=== PATIENT | female | born 1940 | race Caucasian/White ===

== ENCOUNTER 2023-01-16 09:21 | Outpatient (CLI) | payer OTHER | END 2023-01-16 09:22 | disposition home or self-care (01) | LOC: BICRAD 09:21 | PROVIDERS: ATTEND Nurse Practitioner Family | DX: M47.816 Spondylosis without myelopathy or radiculopathy, lumbar region (principal); M41.9 Scoliosis, unspecified | CPT/HCPCS: 72120 ==

== ENCOUNTER 2023-02-28 09:24 | Outpatient (CLI) | payer OTHER | END 2023-02-28 09:25 | disposition home or self-care (01) | LOC: SCSMRI 09:24 | PROVIDERS: ATTEND Specialist | DX: M47.26 Other spondylosis with radiculopathy, lumbar region (principal); M54.14 Radiculopathy, thoracic region; M51.16 Intervertebral disc disorders with radiculopathy, lumbar region; M48.061 Spinal stenosis, lumbar region without neurogenic claudication | CPT/HCPCS: 72146; 72148 ==

== ENCOUNTER 2023-04-06 10:23 | Outpatient (CLI) | payer OTHER ==
[2023-04-06] MEDS ORDERED: Iopamidol 370 76% 100 ML VIAL ONE (12:34)
== END 2023-04-06 10:24 | disposition home or self-care (01) ==
LOC: BICCT 10:23
PROVIDERS: ATTEND Physician Assistant Medical
DX: R10.13 Epigastric pain (principal); R11.0 Nausea; R10.32 Left lower quadrant pain; R93.5 Abnormal findings on diagnostic imaging of other abdominal regions, including retroperitoneum; N28.1 Cyst of kidney, acquired; K59.09 Other constipation; K76.89 Other specified diseases of liver; E27.8 Other specified disorders of adrenal gland; Z90.710 Acquired absence of both cervix and uterus; J98.4 Other disorders of lung; R91.8 Other nonspecific abnormal finding of lung field
CPT/HCPCS: 74177; 82565; Q9967